=== PATIENT | male | born 1960 | race Caucasian/White ===

== ENCOUNTER 2022-04-23 08:10 | Day surgery (SDC) | payer OTHER, SELFPAY ==
[2022-04-22 09:33] VITALS: BMI 20.5
[2022-04-23 08:47] VITALS: BP 118/88; PULSE 48; RESP 18; TEMP 36.1; O2SAT 99
[2022-04-23] MEDS: sodium chloride 0.9% 1,000 ML 30 ML IV (08:50)
--- NOTE | 2022-04-23 09:46 | W.PM.OPSUD ---
Surgery/Procedure H&P Update DATE OF PROCEDURE: April 23, 2022 DATE H&P PERFORMED: 04/21/22 PLANNED PROCEDURE: Operation Date: 04/23/22 09:45 Proposed Procedures p EGD and colonoscopy [id number],Z12.11,R11.2(Not Applicable) - DO arabella Wheat Colonoscopy(Not Applicable) - Rojelio Koenig DO
--- NOTE | 2022-04-23 10:17 | ANES.PREANE2 ---
Pre-Anesthetic Assessment Height/Weight: Height 1.78 m Weight 64.864 kg Temp Pulse Resp BP Pulse Ox O2 Del Method 97 F L 48 L 18 118/88 99 04/23/22 08:47 04/23/22 08:47 04/23/22 08:47 04/23/22 08:47 04/23/22 08:47 04/23/22 08:47 Preop Diagnosis: screening Operation Date: 04/23/22 09:45 Proposed Procedures p EGD and colonoscopy [id number],Z12.11,R11.2(Not Applicable) - Rojelio Koenig DO s Colonoscopy(Not Applicable) - Rojelio Koenig DO Familial anesthetic complications: none Was Beta Patrice taken within 24 hours: N/A Was Clonidine taken within 24 hours: N/A Last intake: Intake Last Liquid Date 04/22/22 Last Liquid Time 22:00 Last Solid Date 04/21/22 Last Solid Time 20:00 Last Intake: 22:00 Social Tobacco and No alcohol 1ppd pack(s) per day 40+ pack years Exam alert, oriented x 3, clear to auscultation bilaterally and regular rate & rhythm Airway Submandibular: within normal limits Cervical ROM: within normal limits Mallampati: Class I Dentition: full Pulmonary None reported CV/HEM None reported None reported Hepatic None reported GI Gastroesophageal Reflux Disease (controlled) Metabolic None reported Musc/skel Lower Back Pain Neuropsych Anxiety, Bipolar and Depression Anesthetic Plan ASA status: 2 Anesthesia: MAC Risk of > 500 ml blood loss (7ml/kg in children): No Medications/Allergies Home Medications Medication Instructions Recorded Confirmed Last Taken Type aspirin 81 mg tablet,delayed 81 mg PO DAILY 10/25/21 04/22/22 04/22/22 History release atorvastatin 80 mg tablet 80 mg PO DAILY 10/25/21 04/22/22 04/22/22 History citalopram 20 mg tablet (Celexa) 20 mg PO DAILY 10/25/21 04/22/22 04/22/22 History gabapentin 300 mg capsule 300 mg PO DAILY 10/25/21 04/22/22 04/22/22 History hydrocodone 10 mg-acetaminophen 1 tab PO BID PRN Pain 10/25/21 04/23/22 04/23/22 06:30 History 325 mg tablet lithium carbonate 300 mg capsule 300 mg PO DAILY 10/25/21 04/22/2222 History omeprazole 40 mg capsule,delayed 40 mg PO DAILY 10/25/21 04/22/22 04/22/22 History release Allergies Allergy/AdvReac Type Severity Reaction Status Date / Time No Known Allergies Allergy Unverified 04/22/22 09:30 Current Medications Generic Name Dose Route Start Last Admin Trade Name Freq PRN Reason Stop Dose Admin Sodium Chloride 1,000 mls @ 30 mls/hr 04/23/22 08:30 04/23/22 08:50 Sodium Chloride 0.9% IV 04/24/22 08:29 30 mls/hr .Q24H TATO Administration PFSH Anesthesia Medical History ASHD (arteriosclerotic heart disease) Bipolar 1 disorder Chronic renal impairment Drug-induced encephalopathy Hyperlipidemia Surgical History H/O heart bypass surgery History of bilateral carpal tunnel release Hx of appendectomy Hx of lumbosacral spine surgery x2 Social History Smoking and tobacco status: current every day smoker Data Anesthesia Cardiac Studies: No Data to Display
[2022-04-23 11:29] VITALS: BP 92/63; PULSE 48; RESP 18; TEMP 36.1; O2SAT 96
--- NOTE | 2022-04-23 11:38 | ANE.PACU2 ---
Inpatient post-anesthesia follow up: Airway intact: Yes Vital signs: Temperature 97 F Pulse Rate 48 Respiratory Rate 18 Blood Pressure 92/63 Pulse Oximetry 96 Oxygen Delivery Me thod Nasal Cannula Oxygen Flow Rate Fraction of Inspir ed Oxygen Hydration adequate: Yes Nausea and vomiting: No Pain level: 1 Mental status: Baseline
[2022-04-23 11:57] VITALS: BP 115/70; PULSE 50; RESP 18; TEMP 36.1; O2SAT 97
== END 2022-04-23 12:05 | disposition home or self-care (01) ==
PROVIDERS: PCP Family Medicine; Visit Provider Surgery
PROC: 0DJ08ZZ Inspection of Upper Intestinal Tract, Via Natural or Artificial Opening Endoscopic (ICD-10-PCS; CPT 43235; principal; 2022-04-23 09:45)
PROC: 0DJD8ZZ Inspection of Lower Intestinal Tract, Via Natural or Artificial Opening Endoscopic (ICD-10-PCS; CPT 45378; 2022-04-23 09:45)
DX: Z12.11 Encounter for screening for malignant neoplasm of colon (principal); K29.50 Unspecified chronic gastritis without bleeding; Z79.82 Long term (current) use of aspirin
CPT/HCPCS: 43239; 45378; 88305; 88342; J2704; J7030

== ENCOUNTER 2022-11-29 09:39 | Outpatient (CLI) | payer MEDICAID, SELFPAY ==
[2022-11-29 10:27] LABS: Alanine Aminotransferase 20 U/L (0-41); Alkaline Phosphatase 104 U/L (40-130); Blood Urea Nitrogen 18 mg/dL (8-23); Calcium 9.5 mg/dL (8.5-10.5); Carbon Dioxide 22 mmol/L (22-29); Chloride 104 mmol/L (98-107); Globulin 3.6 g/dL (1.3-4.6); Glomerular Filtration Rate 51.5 mL/min (90-130); Glucose 100 mg/dL (65-115); Osmolality Calculated 286 mOsm/kg (285-295); Sodium 137 mmol/L (136-145); Total Bilirubin 0.3 mg/dL (0.15-1.2); Total Protein 7.6 g/dL (6.6-8.7)
[2022-11-29 10:29] LABS: Anion Gap 15.1 (5-19); Aspartate Amino Transferase 31 U/L (0-40); Potassium 4.1 mmol/L (3.5-5.1)
== END 2022-11-29 09:40 | disposition home or self-care (01) ==
PROVIDERS: PCP Nurse Practitioner Family; Visit Provider Nurse Practitioner Family
DX: I25.10 Atherosclerotic heart disease of native coronary artery without angina pectoris (principal); N18.2 Chronic kidney disease, stage 2 (mild); R25.8 Other abnormal involuntary movements
CPT/HCPCS: 36415; 80053

== ENCOUNTER 2024-10-14 06:50 | Outpatient (CLI) | payer MEDICAID, SELFPAY ==
--- NOTE | 2024-10-14 07:06 | MR_ITS ---
WS: [id number] MRI LUMBAR SPINE NONCONTRAST HISTORY: CHRONIC BACK PAIN COMPARISON: 03/22/2014 TECHNIQUE: Sagittal and axial multisequence imaging is submitted. Localizer image demonstrates moderate degenerative changes in the cervical and thoracic spine. Mild increase in thoracic kyphosis. Mild anterior wedging of T7 with mild increased T2 signal in the superior endplate. New since 2013 and may be subacute to acute. There is no retropulsion. Schmorl's nodes at T12 and L1. Posterior lumbar alignment is normal. Interbody disc spacers at L4-5 and L5-S1. No marrow edema throughout the lumbar vertebral bodies. Disc spaces are narrowed and desiccated. Conus terminates normally at L1-2 disc level. L1-L2: Mild facet joint arthritis. Small amount of fluid in the facet joints. No stenosis. L2-L3: Mild annular disc bulging with minimal encroachment upon the subarticular recesses. Moderate ligamentum flavum and facet arthritis. Small amount of fluid in the facet joints. Mild subarticular recess and foraminal stenosis. L3-L4: Diffuse osteophytic ridging with annular disc bulging and marked ligamentum flavum and facet arthritis. Significant progression of central and foraminal stenosis. Small amount of fluid in the facet joints. Bilateral disc osteophyte complexes in the foramina. There is disc and osteophyte contact on the exiting and traversing L3 and L4 nerve roots. Moderate central, bilateral subarticular recess and foraminal stenosis. L4-L5: Diffuse annular disc bulging and osteophytic ridging with a central disc protrusion. Marked facet disease. Central disc protrusion has slightly decreased in size since 2014. There is still effacement of the ventral CSF and contact on the traversing L5 nerve roots. Mild disc osteophyte contact on the exiting L4 nerve roots. Mild central, bilateral subarticular recess and foraminal stenosis. L5-S1: Diffuse annular disc bulging with osteophytic ridging and facet arthritis. Minimal disc contact on the RIGHT S1 nerve root and bilaterally disc osteophyte contact on the exiting L5 nerve roots. Mild subarticular recess and foraminal stenosis. Paravertebral soft tissues demonstrate numerous cysts throughout each kidney. MR/MR lumbar spine wo con* [id number] IMPRESSION: 1. Prior interbody disc spacers at L4-5 and L5-S1. 2. New mild anterior wedging of T7 with edema. Age-indeterminate but acute to subacute T7 compression fracture. 3. New but age indeterminate small Schmorl's nodes at T12 and L1. 4. L3-4: Progression of degenerative changes now resulting in moderate central , bilateral subarticular recess and foraminal stenosis. Disc osteophyte contact ing the L3 and L4 nerve roots. 5. L4-5: Central disc protrusion has decreased in size since 2014. There is mi ld central, bilateral subarticular recess and foraminal stenosis. Mild contact on the traversing L5 nerve roots. Minimal disc osteophyte contact on the exitin g L4 nerve roots. 6. L5-S1: Mild disc contact on the RIGHT S1 nerve root and bilaterally on the exiting L5 nerve roots. 7. Facet joint arthritis has increased throughout the lumbar spine.
== END 2024-10-14 06:51 | disposition home or self-care (01) ==
PROVIDERS: PCP Nurse Practitioner Family; Visit Provider Nurse Practitioner Family
DX: M48.061 Spinal stenosis, lumbar region without neurogenic claudication (principal); M48.54XA Collapsed vertebra, not elsewhere classified, thoracic region, initial encounter for fracture; M51.45 Schmorl's nodes, thoracolumbar region; M51.46 Schmorl's nodes, lumbar region; M25.78 Osteophyte, vertebrae; M51.26 Other intervertebral disc displacement, lumbar region; R93.7 Abnormal findings on diagnostic imaging of other parts of musculoskeletal system; M47.896 Other spondylosis, lumbar region; M47.892 Other spondylosis, cervical region; M47.894 Other spondylosis, thoracic region; M40.294 Other kyphosis, thoracic region; Z96.89 Presence of other specified functional implants; M51.369 Other intervertebral disc degeneration, lumbar region without mention of lumbar back pain or lower extremity pain; M51.379 Other intervertebral disc degeneration, lumbosacral region without mention of lumbar back pain or lower extremity pain; M48.07 Spinal stenosis, lumbosacral region; M47.897 Other spondylosis, lumbosacral region; N28.1 Cyst of kidney, acquired
CPT/HCPCS: 72148